=== PATIENT | male | born 1990 | race African-American/Black ===

== ENCOUNTER 2023-04-21 12:56 | Emergency (ER) | payer MEDICAID ==
[~2023-04-21] VITALS: Ht 177.8 cm; Wt 85.0 kg
[2023-04-21] MEDS ORDERED: TETRACAINE 0.5% OPHTH DROPS 4ML RIGHTEYE ONE (13:15)
[2023-04-21] MEDS ORDERED: FLUORESCEIN SODIUM 1MG/STRIP RIGHTEYE ONE (13:15)
[2023-04-21] MEDS ORDERED: LEVO5DRO20 RIGHTEYE (14:27)
[2023-04-21 14:46] VITALS: BP 134/80
== END 2023-04-21 14:47 | disposition home or self-care (01) ==
LOC: ER 13:52
DX: H57.89 Other specified disorders of eye and adnexa (principal)
CPT/HCPCS: 99281; Z7610